=== PATIENT | male | born 1995 | race Caucasian/White ===

== ENCOUNTER → 2018-02-20 | Outpatient (REF) | payer BC ==
[2018-02-20 10:16] LABS: PLATELET COUNT, AUTOMATED 342 K/uL (150-450)
[2018-02-20 10:21] LABS: LDL CHOLESTEROL 62 mg/dl
== END ==
PROVIDERS: ATTEND Nurse Practitioner Family
DX: R07.9 Chest pain, unspecified (principal)
CPT/HCPCS: 82040; 82247; 82310; 82374; 82435; 82465; 82565; 82947; 83718; 84075; 84132; 84155; 84295; 84450; 84460; 84478; 84484; 84520; 85025